=== PATIENT | female | born 1995 | race African-American/Black ===

== ENCOUNTER 2024-10-08 04:36 | Emergency (ER) | payer BC, MEDICAID ==
[~2024-10-08] VITALS: Ht 170.2 cm; Wt 60.0 kg
[2024-10-08 04:41] VITALS: TEMP 36.6; O2SAT 100
[2024-10-08] MEDS: SODIUM CHLORIDE 0.9% 1,000 ML IV ONE (04:51)
[2024-10-08] MEDS: ONDANSETRON HCL 4MG/2ML INJ IV STA (04:51)
[2024-10-08] MEDS: ACETAMINOPHEN 1000MG/100ML 100 ML IV ONE (04:53)
[2024-10-08 05:08] LABS: BASOPHILS % 0.6 % (0.0-2.0); EOSINOPHILS % 0.3 % (0.0-5.0); HEMATOCRIT. 48.3 % (36.0-48.0); HEMOGLOBIN. 16.7 g/dL (12.0-16.0); LYMPHOCYTES % 21.5 % (20.0-50.0); MEAN CORPUSCULAR HEMOGLOBIN 32.7 pg (28.0-32.0); MEAN CORPUSCULAR HGB CONC 34.6 g/dL (31.0-37.0); MEAN CORPUSCULAR VOLUME 94.5 fL (81.0-99.0); MONOCYTES % 5.7 % (2.0-8.0); NEUTROPHILS % 71.9 % (40.0-76.0); PLATELET 286 x1000/uL (130-400); RED BLOOD CELL COUNT 5.12 mill/uL (4.2-5.4); RED CELL DISTRIBUTION WIDTH 13.7 % (11.6-14.6); WHITE BLOOD COUNT 6.4 x1000/uL (4.5-11.0)
[2024-10-08 05:16] LABS: HCG SCREEN NEGATIVE
[2024-10-08 05:17] LABS: INR 1.1; PROTHROMBIN TIME 11.4 sec (9.6-11.0)
[2024-10-08 05:18] LABS: CHLORIDE 107 mEq/L (98-107); POTASSIUM 3.7 mEq/L (3.5-5.1); SODIUM 142 mEq/L (136-145)
[2024-10-08 05:19] LABS: CALCIUM 9.7 mg/dL (8.7-10.4); CARBON DIOXIDE 17 mEq/L (21-32)
[2024-10-08 05:24] LABS: CREATININE 0.8 mg/dL (0.6-1.0); GLUCOSE 118 mg/dL (70-105)
[2024-10-08 05:25] LABS: UREA NITROGEN BLOOD 9 mg/dL (9-23)
[2024-10-08 05:26] LABS: ALANINE AMINOTRANSFERASE 19 IU/L (10-49); ALBUMIN 5.1 g/dL (3.2-4.8); ASPARTATE AMINOTRANSFERASE 17 IU/L (<34); BILIRUBIN DIRECT 0.2 mg/dL (<=3.0)
[2024-10-08 05:27] LABS: BILIRUBIN TOTAL 0.7 mg/dL (0.1-1.0)
[2024-10-08 06:17] LABS: TROPONIN I HIGH SENSITIVITY < 4 ng/L (3.0-34)
[2024-10-08 07:00] VITALS: O2SAT 100
[2024-10-08 07:23] VITALS: BP 121/69; PULSE 85; RESP 13
[2024-10-08] MEDS: KETOROLAC 15MG/ML VIAL IV ONE (07:23)
[2024-10-08] MEDS: FAMOTIDINE 20MG/2ML VIAL IV ONE (07:23)
[2024-10-08 07:26] LABS: CHLORIDE 110 mEq/L (98-107); POTASSIUM 3.6 mEq/L (3.5-5.1); SODIUM 142 mEq/L (136-145)
[2024-10-08 07:28] LABS: CALCIUM 9.2 mg/dL (8.7-10.4); CARBON DIOXIDE 20 mEq/L (21-32)
[2024-10-08 07:32] LABS: CREATININE 0.7 mg/dL (0.6-1.0)
[2024-10-08 07:33] LABS: UREA NITROGEN BLOOD 8 mg/dL (9-23)
[2024-10-08] MEDS ORDERED: ONDA-239 PO (08:32)
[2024-10-08 08:33] LABS: GLUCOSE 113 mg/dL (70-105)
== END 2024-10-08 09:10 | disposition home or self-care (01) ==
LOC: ER 04:36
DX: R10.9 Unspecified abdominal pain (principal); R11.2 Nausea with vomiting, unspecified
CPT/HCPCS: 80076; 80048; 82962; 84703; 83690; 85025; 85610; 84484; 36415; 76705; 93005; 96361; 96374; 96375; 99285; J3490; J1885; J2405; J7030; Z7610 ×2; J0131

== ENCOUNTER → 2024-10-15 | Outpatient (CLI) | payer BC, MEDICAID ==
[~2024-10-15] MED LIST: ONDA-239 PO
[2024-10-15 07:47] LABS: CLARITY URINE CLEAR (CLEAR); COLOR URINE YELLOW (YELLOW); GLUCOSE URINE NEGATIVE (NEGATIVE); KETONES URINE NEGATIVE (NEGATIVE); LEUKOCYTE ESTERASE URINE 3+ (NEGATIVE); NITRITE URINE NEGATIVE (NEGATIVE); OCCULT BLOOD URINE NEGATIVE (NEGATIVE); PROTEIN URINE NEGATIVE (NEGATIVE); SPECIFIC GRAVITY URINE 1.007 (1.005-1.030); UROBILINOGEN URINE 0.2 E.U./dL (0.2-1.0)
[2024-10-15 07:59] LABS: BASOPHILS % 0.5 % (0.0-2.0); EOSINOPHILS % 1.9 % (0.0-5.0); HEMATOCRIT. 43.9 % (36.0-48.0); LYMPHOCYTES % 31.2 % (20.0-50.0); MEAN CORPUSCULAR HEMOGLOBIN 32.7 pg (28.0-32.0); MEAN CORPUSCULAR HGB CONC 34.2 g/dL (31.0-37.0); MEAN CORPUSCULAR VOLUME 95.5 fL (81.0-99.0); MEAN PLATELET VOLUME 8.7 fl (7.4-10.4); NEUTROPHILS % 59.4 % (40.0-76.0); PLATELET 283 x1000/uL (130-400); RED CELL DISTRIBUTION WIDTH 13.9 % (11.6-14.6); WHITE BLOOD COUNT 6.3 x1000/uL (4.5-11.0)
[2024-10-15 08:07] LABS: SQUAMOUS EPITHELIAL CELL URINE 2+ /lpf (RARE/1+)
[2024-10-15 08:09] LABS: BACTERIA URINE 3+; RBC URINE 0-2 /hpf (0-2)
[2024-10-15 08:09] LABS: CARBON DIOXIDE 27 mEq/L (21-32); CHLORIDE 103 mEq/L (98-107); POTASSIUM 3.9 mEq/L (3.5-5.1); SODIUM 137 mEq/L (136-145)
[2024-10-15 08:10] LABS: CALCIUM 9.7 mg/dL (8.7-10.4)
[2024-10-15 08:10] LABS: TRICHOMONAS URINE 1+
[2024-10-15 08:14] LABS: CREATININE 0.8 mg/dL (0.6-1.0)
[2024-10-15 08:15] LABS: GLUCOSE 95 mg/dL (70-105); LDL CHOLESTEROL 75 mg/dL (5-100); TRIGLYCERIDE 44 mg/dL (0-150); UREA NITROGEN BLOOD 8 mg/dL (9-23)
[2024-10-15 08:16] LABS: ALANINE AMINOTRANSFERASE 13 IU/L (10-49); ALBUMIN 4.6 g/dL (3.2-4.8); ASPARTATE AMINOTRANSFERASE 13 IU/L (<34)
[2024-10-15 08:17] LABS: BILIRUBIN TOTAL 0.5 mg/dL (0.1-1.0); CHOLESTEROL 135 mg/dL (<200); HDL CHOLESTEROL 49 mg/dL (>65); IRON 68 ug/dL (50-170); PROTEIN TOTAL 8.1 g/dL (6.0-8.3)
[2024-10-15 08:18] LABS: FERRITIN 51 ng/mL (10-291); FOLIC ACID (FOLATE) SERUM 18.02 ng/mL (>5.38); VITAMIN B12 SERUM 731 pg/mL (211-911)
[2024-10-15 08:20] LABS: T4 FREE 1.49 ng/dL (0.89-1.76); THYROID STIMULATING HORMONE 0.51 uIU/mL (0.55-4.78); TOTAL IRON BINDING CAPACITY 284 ug/dl (250-425)
[2024-10-15 08:46] LABS: ERYTHROCYTE SEDIMENTATION RATE 4 mm/hr (0-20)
== END | disposition home or self-care (01) ==
LOC: LAB 07:08
PROVIDERS: ATTEND Family Medicine Adult Medicine
DX: D64.9 Anemia, unspecified (principal); E55.9 Vitamin D deficiency, unspecified
CPT/HCPCS: 36415; 80053; 80061; 81003; 82306; 82607; 82728; 82746; 83036; 83540; 83550; 84439; 84443; 84481; 85025; 85651